=== PATIENT | female | born 1990 | race Caucasian/White ===

== ENCOUNTER 2022-08-14 04:17 | Emergency (ER) | payer SELFPAY ==
[~2022-08-14] VITALS: Ht 162.6 cm; Wt 68.0 kg
[2022-08-14 04:50] VITALS: BP 139/100
--- NOTE | 2022-08-14 05:05 | NUR ---
pt is having for sob for a week epsically when th time when pt going top bed, and had dry coughing, headache and has been very tired.
[2022-08-14] MEDS ORDERED: ACETAMINOPHEN 325 MG TAB PO ONE (05:30)
[2022-08-14] MEDS ORDERED: ONDANSETRON 4 MG ODT PO ONE (05:30)
[2022-08-14 05:50] LABS: BILIRUBIN,URINE NEGATIVE (NEGATIVE); BLOOD, URINE NEGATIVE (NEGATIVE); COLOR,URINE YELLOW (YELLOW); LEUKOCYTE ESTERASE ,URINE SMALL (NEGATIVE); NITRITE, URINE POSITIVE (NEGATIVE); UGLUCOSE NEGATIVE (NEGATIVE)
[2022-08-14 06:02] LABS: APPEARANCE,URINE SLIGHTLY HAZY (CLEAR)
[2022-08-14 06:07] LABS: RBC,URINE 0-5 /HPF (0-5)
[2022-08-14 06:08] LABS: WBC,URINE 20-60 /HPF (0-5)
[2022-08-14] MEDS ORDERED: ACET-10509 PO (06:29)
[2022-08-14] MEDS ORDERED: CEPH-588 PO (06:29)
[2022-08-14] MEDS ORDERED: ONDA-188 SL (06:29)
[2022-08-14 06:42] VITALS: BP 139/100
--- NOTE | 2022-08-14 06:44 | NUR ---
Patient discharged with v/s stable. Written and verbal after care instructions given and explained. Patient verbalized understanding. Ambulatory with steady gait. All questions addressed prior to discharge. Advised to follow up with PMD. Pt left with her belonging.
== END 2022-08-14 06:42 | disposition home or self-care (01) ==
LOC: MED 04:17
DX: N30.00 Acute cystitis without hematuria (principal); Z20.822 Contact with and (suspected) exposure to COVID-19; B34.9 Viral infection, unspecified
CPT/HCPCS: 71045; 81001; 81025; 87086; 87426; 93005; 99285; Q0162